=== PATIENT | female | born 1985 | race Caucasian/White ===

== ENCOUNTER 2019-01-08 20:19 | Emergency (ER) | payer SELFPAY ==
[~2019-01-08] VITALS: Ht 175.3 cm; Wt 61.3 kg
[2019-01-08] MEDS ORDERED: LORazepam 1MG TABLET PO ONE (21:00)
[2019-01-08] MEDS ORDERED: LORazepam 1MG TABLET ONE (21:05)
[2019-01-08] MEDS ORDERED: ONDANSETRON ODT 4 MG ONE (21:28)
[2019-01-08] MEDS ORDERED: ONDANSETRON ODT 4 MG PO ONE (21:30)
--- NOTE | 2019-01-08 21:32 | NUR ---
pt medicated per emar. pt tolerated well.
[2019-01-08 21:49] LABS: BASOPHILS # (AUTO) 0.02 x10^3/uL (0-0.1); BASOPHILS % (AUTO) 0 % (0-1); EOSINOPHILS # (AUTO) 0.35 x10^3/uL (0-0.4); EOSINOPHILS % (AUTO) 5 % (1-7); LYMPHOCYTES # (AUTO) 1.23 x10^3/uL (1-3.4); LYMPHOCYTES % (AUTO) 17 % (22-44); MD NO; MEAN CORPUSCULAR HEMOGLOBIN 33.9 pg (27.0-34.8); MEAN CORPUSCULAR HGB CONC 34.4 g/dL (32.4-35.8); MEAN CORPUSCULAR VOLUME 98.6 fL (80-100); MEAN PLATELET VOLUME 7.6 fL (7.4-10.4); MONOCYTES # (AUTO) 0.65 x10^3/uL (0.2-0.8); MONOCYTES % (AUTO) 9 % (2-9); NEUTROPHILS # (AUTO) 4.94 x10^3/uL (1.8-6.8); NEUTROPHILS % (AUTO) 69 % (42-75); PLATELET COUNT 165 x10^3/uL (130-400); RED BLOOD COUNT 4.09 x10^6/uL (3.82-5.3); RED CELL DISTRIBUTION WIDTH 14.4 % (9.6-15.2)
[2019-01-08 22:00] LABS: ALANINE AMINOTRANSFERASE 114 U/L (12-78); ALBUMIN 3.8 g/dL (3.4-5.0); ANION GAP 10 mmol/L (5-15); CALCIUM 8.8 mg/dL (8.5-10.1); CHLORIDE 106 mmol/L (98-107); CREATININE 0.74 mg/dL (0.55-1.02)
[2019-01-08 22:02] LABS: ALKALINE PHOSPHATASE 72 U/L (45-117); BILIRUBIN,TOTAL 0.3 mg/dL (0.2-1.0); TOTAL PROTEIN 6.9 g/dL (6.4-8.2)
--- NOTE | 2019-01-08 22:14 | NUR ---
RECEIVED BS REPORT FORM ALDO RN AT 2200 TO ASSUME PT. CARE. VS UPDATED. PT. UP FOR RECHECK AT THIS TIME. NADN. DENIES NEED. B/P AND SPO2 MONITORS IN PLACE. CALL LIGHT IN REACH.
[2019-01-08 22:42] VITALS: BP 108/74
== END 2019-01-08 22:44 | disposition home or self-care (01) ==
LOC: ED 22:27
DX: F41.1 Generalized anxiety disorder (principal); F10.129 Alcohol abuse with intoxication, unspecified; F19.94 Other psychoactive substance use, unspecified with psychoactive substance-induced mood disorder
CPT/HCPCS: 36415; 80053; 83690; 83735; 85025; 99284; Q0162